=== PATIENT | female | born 1960 | race Two or more races ===

== ENCOUNTER 2019-05-21 23:14 | Emergency (ER) | payer OTHER ==
[~2019-05-21] VITALS: Ht 165.1 cm; Wt 64.4 kg
[2019-05-21 23:52] VITALS: BP 113/68
[2019-05-22] MEDS ORDERED: IBUPROFEN 600 MG TABLET PO ONE (02:00)
== END 2019-05-22 02:00 | disposition home or self-care (01) ==
LOC: ER 23:16
DX: S80.11XA Contusion of right lower leg, initial encounter (principal); W01.0XXA Fall on same level from slipping, tripping and stumbling without subsequent striking against object, initial encounter; Y93.89 Activity, other specified; Y92.89 Other specified places as the place of occurrence of the external cause; Y99.0 Civilian activity done for income or pay